=== PATIENT | male | born 1990 | race African-American/Black ===

== ENCOUNTER 2016-05-08 16:48 | Emergency (ER) | payer OTHER ==
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
[2016-05-08 17:56] LABS: % BASOPHILS 1.3 % (0.0-2.0); % EOSINOPHILS 4.6 % (0.0-5.0); % LYMPHOCYTES 28.6 % (20.0-50.0); % MONOCYTES 5.5 % (2.0-10.0); HEMATOCRIT 47.8 % (39.0-49.0); HEMOGLOBIN 15.8 gm/dL (13.2-17.3); MEAN CELL VOLUME 81.3 fl (80-99); MEAN CORPUSCULAR HEMOGLOBIN 26.8 pg (26.0-30.0); MEAN PLATELET VOLUME 8.8 fl; NEUTROPHILE ABSOLUTE 3.2 Th/cmm (1.8-8.0); PLATELET COUNT 290 Th/cmm (150-400); RED BLOOD COUNT 5.87 Mil/cmm (4.30-5.70); RED CELL DISTRIBUTION WIDTH 12.5 % (11.5-20.0); WHITE BLOOD COUNT 5.5 Th/cmm (4.8-10.8)
[2016-05-08 18:16] LABS: ALB/GLOB RATIO 1.3 (1.0-1.8); ALKALINE PHOSPHATASE 49 U/L (34-104); ANION GAP 9.4 (7.0-16.0); BILIRUBIN,TOTAL 0.3 mg/dL (0.3-1.0); BUN - UREA NITROGEN 12 mg/dL (7-25); BUN/CREATININE RATIO 13.3; CALCIUM SERUM 9.7 mg/dL (8.6-10.3); CARBON DIOXIDE 26.8 mEq/L (21.0-31.0); CHLORIDE 104 mEq/L (98-107); CREATININE - SERUM 0.9 mg/dL (0.7-1.3); GLUCOSE 103 mg/dL (70-105); POTASSIUM SERUM 4.2 mEq/L (3.5-5.1); SGOT 31 U/L (13-39); SGPT/ALT 50 U/L (7-52); SODIUM SERUM 136 mEq/L (136-145)
--- NOTE | 2016-05-09 11:17 | Diagnostic Imaging Report ---
CT scan of the brain without contrast History: Left arm numbness, stroke/CVA Total DLP equals 752 CTDI equals 38.9 Axial sections were obtained from the base of the skull to the vertex. There is a normal ventricular system size. No focal parenchymal lesions are seen. No evidence of any mass effect or shift of midline structures. No extra-axial masses or abnormal fluid collections. Mucosal thickening seen within the ethmoid sinuses. Impression: 1. No acute abnormalities 2. Mucosal thickening within the ethmoid sinuses
--- NOTE | 2016-05-09 11:18 | Diagnostic Imaging Report ---
CT scan cervical spine History: Pain, left arm numbness, radiculopathy Total DLP equals 827 CTDI equals 36.5 Axial sections were obtained through the cervical spine region. Additional sagittal and coronal reformatted images are provided. No focal bony lesions are seen. Specifically, no fractures are identified. There is limited visualization of the margins of the cervical spinal cord. No obvious extradural soft tissue abnormalities are seen. The prevertebral soft tissues appear normal. Impression: No acute abnormalities
--- NOTE | 2016-05-09 11:20 | Diagnostic Imaging Report ---
Portable chest x-ray HISTORY: Pain There is a poor inspiration. The heart size is difficult to assess with portable technique. No acute focal pulmonary processes. No hilar or mediastinal abnormalities. IMPRESSION: No acute abnormalities
== END 2016-05-08 20:15 | disposition home or self-care (01) ==
LOC: ER 16:48
DX: M79.602 Pain in left arm (principal); F41.9 Anxiety disorder, unspecified
CPT/HCPCS: 36415-UA; 70450-TC; 71010-TC; 72125-TC; 80053-TC; 84484-TC; 85025-TC; 85379-TC; 93005